=== PATIENT | female | born 1960 | race Caucasian/White ===

== ENCOUNTER → 2021-03-07 15:28 | Outpatient (CLI) | payer OTHER, SELFPAY ==
[2021-03-07 17:55] LABS: Absolute Lymphocyte Count 1.61 X10^3/uL (0.83-4.51); Absolute Neutrophil Count 3.8 X10^3/uL (2.0-7.7); Basophil# 0.04 X10^3/uL; Basophil% 0.7 % (0-1); Eosinophil# 0.09 X10^3/uL; Eosinophils% 1.5 % (0-5); Hematocrit 41.8 % (37-47); Hemoglobin 13.4 g/dL (12.0-15.0); Lymphocyte # 1.61 X10^3/ul (0.83-4.51); Lymphocyte % 26.7 % (19-41); Mean Corp Hgb Conc 32.1 g/dL (32-36); Mean Corpuscular Hgb 28.8 pg (27.0-32.0); Mean Corpuscular Volume 89.7 fL (81-99); Mean Platelet Vol. 10.7 fl (6.2-12.0); Monocyte# 0.46 X10^3/uL; Monocyte% 7.6 % (0-10); NRBC Flagged by Analyzer 0 % (0-5); Neutrophil # 3.81 X10^3/uL (2.7-7.7); Neutrophil % 63.2 % (47-70); Platelet Count 314 K/mm3 (150-450); RBC Distribution Width CV 12.2 % (11.6-14.6); RBC Distribution Width SD 39.7 fl (35.1-43.9); Red Blood Count 4.66 M/mm3 (4.2-5.4)
[2021-03-07 18:32] LABS: ALB/GLOB Ratio 1.1 RATIO (0.9-2.4); AST(SGOT) 13 U/L (15-37); Alanine Aminotransfer ALT/SGPT 17 U/L (13-56); Alkaline Phosphatase 52 U/L (45-117); Anion Gap 5 (5-15); BUN 18 mg/dL (7-18); BUN/Creat Ratio 20.7 RATIO (10-20); Calcium,Total 9.1 mg/dL (8.5-10.1); Chloride 108 mmol/L (98-107); Cholesterol 225 mg/dL (200); Creatinine, Serum 0.87 mg/dL (0.55-1.02); EST Glomerular Filtration Rate 70 mL/min (>60); Est Glom Filt Rate - Afr Amer 85 mL/min (>60); Globulin 3.6 g/dL (2.2-4.2); Glucose 97 mg/dL (74-106); High Density Lipoprotein 74 mg/dL; Potassium 3.6 mmol/L (3.5-5.1); Protein, Total 7.6 g/dL (6.4-8.2); Sodium Level 141 mmol/L (136-145); Thyroid Stim Hormone (TSH) 0.59 uIU/mL (0.358-3.74); Triglycerides 114 mg/dL; Very Low Density Lipoprotein 23 mg/dL (5-40)
[2021-03-10 14:08] LABS: Thyroid Stim Immunoglob <0.10 IU/L (0.00-0.55)
[2021-03-11 10:03] LABS: Anti-Thyroglobulin AB < 1.0 IU/mL (0.0-0.9); Thyroglobulin, Serum Qt. 43.4 ng/mL (1.5-38.5); Thyroid Peroxidase AB < 9 IU/mL (0-34)
== END ==
PROVIDERS: Family Medicine; PCP Family Medicine; Referring Provider Family Medicine; Visit Provider Family Medicine
DX: R79.89 Other specified abnormal findings of blood chemistry (principal)
CPT/HCPCS: 36415; 80053; 80061; 84432; 84443; 84445; 85025; 86376; 86800

== ENCOUNTER 2021-04-30 07:28 | Day surgery (SDC) | payer OTHER, SELFPAY ==
[2021-04-30 07:57] VITALS: BP 132/78; PULSE 74; RESP 16; TEMP 36.2; O2SAT 96; BMI 28.4
--- NOTE | 2021-04-30 07:59 | H&P.OPEN ---
HPI - General HPI Narrative JAMIE STOREY, is a 60 F who presents for surveillance colonoscopy. The patient reports her last colonoscopy was 8 years ago and she was recommended to repeat in 5 due to polyps. Patient is not having any abdominal pain or blood in the stool and denies any family history of colon cancer. [facility] Medical History (Updated 04/30/21 @ 08:[address] Neftali Aguirre MD) Non-smoker Post-menopausal Home Medications loratadine-pseudoephedrine [Claritin-D 24 Hour] 1 tab PO DAILY 04/26/21 [History Last Taken Unknown] Allergy/AdvReac Type Severity Reaction Status Date / Time Sulfa (Sulfonamide Allergy Rash Verified 04/26/21 16:35 Antibiotics) Surgical History (Updated 04/26/21 @ 16:36 by Jael Nuñez) History of hysterectomy History of tonsillectomy Social History Smoking Status: Never smoker Past Medical/Surgical History Planned Operation Planned Operative Procedure/s: colonoscopy Previous Hospitalizations/Surgeries HX Hospitalizations: No Any Problems With Anesthesia: No You/Your Family Experience Fever (Hyperthermia) With Anes: No Cholinesterase deficiency: No Cardiovascular Hx Hypertension: No Respiratory Hx Sleep Apnea: No Hx Respiratory Tract Infection/Cold (presently): No Do You Snore Loudly (louder than talking or can be heard): No Do You Often Feel Tired/ Fatigued/ Sleepy Dring Daytime?: No Has Anyone Observed You Stop Breathing During Sleep?: No Result (for STOP score): Negative Smoking Status: Never smoker Gastrointestinal Special diet followed at home: No Neurological Does patient have nerve stimulator: No Reproduction : No Allergies Sulfa (Sulfonamide Antibiotics) Allergy (Verified 04/26/21 16:35) Rash Discharge Is Pt Admitted From a Assisted, or a Long Term: No After D/C, Where Do you Plan to Go: Return Home Physical Exam Const alert and oriented x3 Resp normal respiratory effort and normal air movement Cardio regular rate and regular rhythm GI soft to palpation, non-tender and non-distended Assessment & Plan Assessment/Plan (1) History of colon polyps: PLAN: Patient has a history of polyps and is 3 years overdue for surveillance colonoscopy. I explained endoscopy in detail to the patient. I explained the risks including but not limited to stroke or heart attack with anesthesia, perforation of the GI tract, bleeding, infection. I explained that any of these could necessitate further emergency surgery. The patient understands and all questions were answered sufficiently. The patient wishes to proceed with procedure. Neftali Aguirre MD Pager: [facility] [address] [place] [address] [address] [place] [address] Office: Surgery Risks - Colonoscopy Risks Include but are not Limited To: Risks include but are not limited to: Bleeding, perforation requiring further surgery, inability to complete colonoscopy requiring barium enema.
[2021-04-30] MEDS: Lactated Ringers 1,000 ML 100 ML IV (08:02)
[2021-04-30 08:45] VITALS: BP 108/79; BP 132/78; PULSE 60; RESP 14; TEMP 36.5; O2SAT 98
[2021-04-30 08:50] VITALS: BP 114/95; BP 132/78; PULSE 61; RESP 16; O2SAT 98
[2021-04-30 08:55] VITALS: BP 126/76; BP 132/78; PULSE 61; RESP 16; O2SAT 98
[2021-04-30 09:00] VITALS: BP 113/72; BP 132/78; PULSE 56; RESP 16; TEMP 36.3; O2SAT 100
[2021-04-30 09:37] VITALS: BP 132/78
--- NOTE | 2021-04-30 09:55 | OP.CCLET_ITS ---
04/30/2021 Marcio Nicholson Md Re : Colonoscopy procedure for Saumya Sin Dear Bharat This procedure was performed on Friday, April 30, 2021. My impressions and recommendations are as follows: Impressions : - The entire examined colon is normal on direct and retroflexion views. - No specimens collected. Recommendations : - Discharge patient to home. - Resume previous diet. - Continue present medications. - Repeat colonoscopy in 10 years for screening purposes. My findings are described in the full procedure note, which is enclosed. If I can be of further assistance, please feel free to contact me at Doctor phone number(s): , Work: . Sincerely, Neftali Aguirre MD 04/30/2021 8:43:08 AM This report has been signed electronically.
--- NOTE | 2021-04-30 09:56 | OP.COLON_ITS ---
Patient Name: Suamya Sin Procedure Date: 04/30/2021 8:18 AM Date of : 1960 Age: 60 Procedure: Colonoscopy Indications: Surveillance: Personal history of adenomatous polyps on last colonoscopy > 5 years ago Providers: Neftali Aguirre MD Medicines: Monitored Anesthesia Care Patient Profile: This is a 60 year old female. Refer to note in patient chart for documentation of history and physical. Last Colonoscopy: several years ago. Complications: No immediate complications. Procedure: Pre-Anesthesia Assessment: - Prior to the procedure, a History and Physical was performed, and patient medications and allergies were reviewed. The patient's tolerance of previous anesthesia was also reviewed. The risks and benefits of the procedure and the sedation options and risks were discussed with the patient. All questions were answered, and informed consent was obtained. Prior Anticoagulants: The patient has taken no previous anticoagulant or antiplatelet agents. After reviewing the risks and benefits, the patient was deemed in satisfactory condition to undergo the procedure. After I obtained informed consent, the scope was passed under direct vision. Throughout the procedure, the patient's blood pressure, pulse, and oxygen saturations were monitored continuously. The Colonoscope was introduced through the anus and advanced to the cecum, identified by appendiceal orifice and ileocecal valve. The colonoscopy was performed without difficulty. The patient tolerated the procedure well. The quality of the bowel preparation was good. Scope In: 8:25:26 AM Scope Withdrawal Time 0 hours 6 minutes 4 seconds Scope Out: 8:40:27 AM Total Procedure Duration Time 0 hours 15 minutes 1 second Findings: The entire examined colon appeared normal on direct and retroflexion views. Impression: - The entire examined colon is normal on direct and retroflexion views. - No specimens collected. Recommendation: - Discharge patient to home. - Resume previous diet. - Continue present medications. - Repeat colonoscopy in 10 years for screening purposes. Procedure Code(s): --- Professional --- 37617, Colonoscopy, flexible; diagnostic, including collection of specimen(s) by brushing or washing, when performed (separate procedure) Diagnosis Code(s): --- Professional --- Z86.010, Personal history of colonic polyps CPT copyright 2017 [employer]. All rights reserved. The codes documented in this report are preliminary and upon flight manager review may be revised to meet current compliance requirements. Neftali Aguirre MD 04/30/2021 8:43:08 AM This report has been signed electronically. Number of Addenda: 0 Note Initiated On: 04/30/2021 8:18 AM
== END 2021-04-30 09:39 | disposition home or self-care (01) ==
LOC: EN 07:31 → AC 07:32
PROVIDERS: PCP Family Medicine; Referring Provider Family Medicine; Visit Provider Surgery
PROC: 0DJD8ZZ Inspection of Lower Intestinal Tract, Via Natural or Artificial Opening Endoscopic (ICD-10-PCS; CPT 45378; principal; 2021-04-30 08:25)
DX: Z12.11 Encounter for screening for malignant neoplasm of colon (principal); Z86.010 Personal history of colon polyps
CPT/HCPCS: 45378; J7120; J2405

== ENCOUNTER → 2021-08-08 | Outpatient (CLI) | payer OTHER, SELFPAY | END | disposition home or self-care (01) | LOC: LABSPEC 08-10 07:43 | PROVIDERS: PCP Family Medicine; Visit Provider Family Medicine | DX: U07.1 COVID-19 (principal) | CPT/HCPCS: 87635; U0005; U0003 ==

== ENCOUNTER 2021-08-13 13:47 | Outpatient (CLI) | payer OTHER, SELFPAY ==
[2021-08-13 13:59] VITALS: BP 115/94; PULSE 68; RESP 16; TEMP 36.5; O2SAT 99; BMI 27.4
[2021-08-13] MEDS: 0.9% Saline Lock 10 ML Syringe IV (14:03)
[2021-08-13 14:36] VITALS: BP 137/58; PULSE 56; RESP 16; TEMP 36.6; O2SAT 98
[2021-08-13 15:35] VITALS: BP 129/70; PULSE 53; RESP 16; TEMP 36.6; O2SAT 99
== END 2021-08-13 15:35 | disposition home or self-care (01) ==
LOC: MS3OUT 13:47 → MS3 13:48
PROVIDERS: PCP Family Medicine; Referring Provider Nurse Practitioner Adult Health; Visit Provider Nurse Practitioner Adult Health
DX: U07.1 COVID-19 (principal)
CPT/HCPCS: J7050; M0245; Q0245; A4216

== ENCOUNTER → 2021-09-06 11:57 | Outpatient (CLI) | payer OTHER, SELFPAY | PROVIDERS: PCP Family Medicine; Referring Provider Family Medicine; Visit Provider Family Medicine | DX: R69 Illness, unspecified (principal) ==

== ENCOUNTER → 2022-10-18 | Outpatient (CLI) | payer OTHER, SELFPAY ==
--- NOTE | 2022-10-18 12:40 | US_ITS ---
EXAM: US RIGHT LOWER EXTREMITY NON-VASCULAR, COMPLETE CLINICAL INDICATION: R knee pain. posterior and anterior. 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 This report was created using Denator report Waggl technology. COMPARISON: None. FINDINGS: The areas of the proximal right popliteal fossae and right right anterior knee were imaged. Normal soft tissues are demonstrated. No masses or fluid collections. US/Ext Non Vasc Limited/Soft Tiss IMPRESSION: 1. Normal soft tissues are demonstrated. 2. No masses or fluid collections Electronically Signed: Ryland Mckeon MD at 22:17 EST ,
== END | disposition home or self-care (01) ==
PROVIDERS: PCP Family Medicine; Referring Provider Family Medicine; Visit Provider Family Medicine
DX: M71.21 Synovial cyst of popliteal space [Baker], right knee (principal)
CPT/HCPCS: 76882

== ENCOUNTER 2022-11-22 14:30 | Outpatient (RCR) | payer OTHER, SELFPAY ==
--- NOTE | 2022-11-01 16:00 | HP.PTEVAL_ITS ---
Patient's Visit Information JAMIE STOREY is a 62 year old F referred to Physical Therapy by Dr. Oumar Hook MD with a diagnosis of RIGHT KNEE PAIN. Date of Evaluation: 11/01/22 Physical Therapist: Adama Garcia, PT, Cert MDT, OCS - Visit Plan Frequency: 1x/Week Duration: 1 Week Plan: PT INTERVETIONS ROM ,STRENGTHENING QUADS/HAMS/HIP ,FLEXABLITY AND FUNCTIONAL STRENGTHENING - Subjective This 62 y/o female presents to physical therapy with right knee pain .Patient has had right knee pain for ~ [address] did US . Recommended PT . Patient pain located medial/lateral knee. Patient aggravating factors medial/lateral ,squatting ,kneeling and difficulty with stairs. Alleviating factors rest ,heat. Patient DR recommended brace. MEDS : meloxicam. Patient has difficulty with sleeping .Patient seems to getting better. Patient affects QOL and function . VOCATION: Preschool. SOCAIL: - Pain Right Knee Pain Intensity (Out of 10): 9 Pain Intensity Range: 10 - Objective POSTURE: mild knee flexed right. GAIT: ambulates with slight knee flexed with mild decrease stance time. PALPATION: unremarkable. NEURO: intact. MMT:( peak force) -quads 16.2,hamstrings 17.7 ,hip flexion 23 .hip abd 17.2. AROM: Supine knee flexion 0-120 degrees pain with OP with flexion/extension - Special Tests R Knee Rossi - Meniscus: Negative R Knee Rivas - ACL: Negative R Knee Anterior Drawer - ACL: Negative R Knee Valgus - MCL: Negative R Knee Varus - LCL: Positive R Knee Patellar Apprehension - PFS: Negative R Knee Patellar Grind - PFS: Negative - Balance/Special Test Scores Lower Extremity Functional Score: 31 - Goals Goal 1:: Patient to be I with HEP Goal Time Frame: 4-6 Weeks Goal 2:: Patient to demonstrate 50% improvement with increase ROM and function with less pain Goal Time Frame: 4-6 Weeks Goal 3:: Patient to improve strength peak force by 5 points to improve function and gait Goal Time Frame: 4-6 Weeks Goal 4:: Patient to improve AROM supine knee flexion by 5 degrees to improve stairs Goal Time Frame: 4-6 Weeks Goal 5:: Patient to improve LFES score by 5 points or > to improve QOL and function Goal Time Frame: 4-6 Weeks - Rehabilitation Potential Physical Therapy Diagnosis: Patient has right knee pain with decrease ROM and strength and worse with activity medial/lateral movement but may have some minor meniscus dysfunction thus benefit from skilled PT Rehabilitation Potential: Good - Anticipated Interventions Patient/Client Instruction: Educate patient on: Condition, Plan of Care For the Purpose of:: To decrease pain, To increase ROM, To improve muscle performance and motor function, To improve ability to perform ADL's, To increase tolerance to activity/condition/position, To improve ability of physical actions for home/community/work/leisure, To improve health of tissue, To decrease soft tissue restriction, To increase flexibility/ROM, To reduce risk of recurrence Therapeutic Exercise to Include: Strength training, Flexibilty training, Active ROM Comment: QUADS/HAMS/HIP For the Purpose of:: To decrease pain, To increase ROM, To improve muscle performance and motor function, To increase tolerance to activity/condition/position, To improve ability of physical actions for home/community/work/leisure, To improve health of tissue, To decrease soft tissue restriction, To increase flexibility/ROM, To prevent re-injury Thank you for the opportunity to evaluate your patient. For Medicare and Medicare HMO plans, please review the plan of care and approve it. It will need to be FAXED BACK to us at [phone] for Medicare purposes. For Medicare only, by signing this I certify the plan of care. Please let me know if there are questions or concerns regarding this plan of care. Physician Signature: Date:___
--- NOTE | 2022-11-22 14:57 | HP.PTDCSUM ---
It has been my pleasure to treat JAMIE STOREY referred by Dr. Oumar Hook MD, with the diagnosis of RIGHT KNEE PAIN for a total of 4 visit(s). Discharge Date: 11/22/22 Please see the following information for a summary of their discharge status. Subjective: Doing good ready for d/c Right Knee Pain Intensity (Out of 10): 0 % Improvement: 90 Objective/Function: GAIT: reciprocal pattern. MMT: quads/hams 4/5 ,hip flexion 4/5 ,ankle 5/5. AROM : 0-135 degrees. STAIRS: alternating with rails Goal 1:: Patient to be I with HEP Goal Progress: Goal Met Goal 2:: Patient to demonstrate 50% improvement with increase ROM and function with less pain Goal Progress: Goal Met Goal 3:: Patient to improve strength peak force by 5 points to improve function and gait Goal Progress: Goal Met Goal 4:: Patient to improve AROM supine knee flexion by 5 degrees to improve stairs Goal 5:: Patient to improve LFES score by 5 points or > to improve QOL and function Goal Progress: Goal Met Plan: D/C Discharge Comments: HEP If there are questions or concerns regarding this patient's physical therapy, please feel free to call me at [phone]. Thank you for the referral of this patient. Sincerely, Adama Garcia, PT, Cert MDT, OCS Balance/Gait/Functional tests - Balance/Special Test Scores Lower Extremity Functional Score: 31
== END 2022-11-22 19:00 | disposition home or self-care (01) ==
LOC: PT 14:30
PROVIDERS: PCP Family Medicine; Referring Provider Family Medicine; Visit Provider Family Medicine
DX: M25.561 Pain in right knee (principal)
CPT/HCPCS: 97110; 97162

== ENCOUNTER → 2023-01-21 | Outpatient (CLI) | payer OTHER, SELFPAY ==
[2023-01-21 16:15] LABS: Bacteria 0 SEEN /hpf (None Seen); Mucous, Urine 0 SEEN /hpf (<or=2+); Squamous Epithelial Cells - UA 0 SEEN /hpf (5-10)
[2023-01-21 16:52] LABS: Color, Urine Yellow (Yellow); Glucose, Dipstick Normal (Normal); Ketone-Dipstick 5 mg/dl (Negative); Leukocyte Esterase-Dipstick 500 /ul (Negative); Nitrite-Dipstick Positive (Negative); Occult Blood-Urine 250 /ul (Negative); Protein-Dipstick 100 mg/dl (Negative); Specific Gravity, Urine 1.015 (1.002-1.030); Urine Bilirubin Dipstick Negative (Negative); Urine Clarity Cloudy (Clear); Urine Urobilinogen 1 mg/dl (Normal); Urine pH 6.5 (5.0 - 8.0)
[2023-01-21 17:03] LABS: Red Blood Cells-Urine > 100 SEEN /hpf (0-5); White Blood Cells >100 SEEN /hpf (0-5)
== END | disposition home or self-care (01) ==
LOC: LABSPEC 15:57
PROVIDERS: PCP Family Medicine; Referring Provider Physician Assistant Surgical; Visit Provider Physician Assistant Surgical
DX: N39.0 Urinary tract infection, site not specified (principal)
CPT/HCPCS: 81001; 87077; 87086; 87088; 87186

== ENCOUNTER → 2025-02-14 | Outpatient (CLI) | payer MEDICARE, BC, SELFPAY ==
[2025-02-14 15:34] LABS: AST(SGOT) 22 U/L (<=31); Alanine Aminotransfer ALT/SGPT 15 U/L (<=34)
== END | disposition home or self-care (01) ==
LOC: MTLAB 13:06
PROVIDERS: PCP Family Medicine; Referring Provider Podiatrist; Visit Provider Podiatrist
DX: B35.1 Tinea unguium (principal)
CPT/HCPCS: 36415; 84450; 84460

== ENCOUNTER → 2025-03-23 | Outpatient (CLI) | payer MEDICARE, BC, SELFPAY ==
[2025-03-23 11:36] LABS: AST(SGOT) 20 U/L (<=31); Alanine Aminotransfer ALT/SGPT 17 U/L (<=34)
== END | disposition home or self-care (01) ==
LOC: MTLAB 08:48
PROVIDERS: PCP Family Medicine; Referring Provider Podiatrist; Visit Provider Podiatrist
DX: B35.1 Tinea unguium (principal)
CPT/HCPCS: 36415; 84450; 84460

== ENCOUNTER → 2025-07-13 | Outpatient (CLI) | payer MEDICARE, BC, SELFPAY ==
--- NOTE | 2025-07-13 16:23 | BD_ITS ---
PROCEDURE: DEXA BONE DENSITY STUDY 07/13/2025 REASON FOR EXAM: F, age 64 y/o . Postmenopausal. TECHNIQUE: Procedure Code: BDDBD Modality: DX Procedure: DEXA BONE DENSITY STUDY COMPARISON: None FINDINGS: BMD and T-SCORES Lumbar spine: 0.897 g/cm2, T-score -1.1 Levels: L1 through L4 Left femoral neck: 0.705 g/cm2, T-score -1.3 Femoral neck comparison data not recommended for monitoring change. Left total hip: 0.869 g/cm2, T-score -0.6 Right femoral neck: 0.693 g/cm2, T-score -1.4 Femoral neck comparison data not recommended for monitoring change. Right total hip: 0.804 g/cm2, T-score -1 point The World Health Organization has defined the following categories based on bone density: Normal bone density: T-score equal to or greater than -1.0 Osteopenia: T-score between -1.0 and -2.5 Osteoporosis: T-score equal to or less than -2.5 FRAX (or Comparable) Fracture Risk Assessment: 10 Year Probability of Fracture: Major Osteoporotic Fracture: 8.5% Hip Fracture: 0.9% (Note: FRAX is not to be reported in setting of normal range bone density, osteoporosis on DEXA, known history of osteoporosis, prior osteoporotic hip or vertebral fracture, or for any patient undergoing pharmacological treatment for bone loss.) The National Osteoporosis Foundation (NOF) recommends pharmacological treatment for patients with a FRAX 10-year risk of 3% or higher for a hip fracture, or 20% or higher for a major osteoporotic fracture, to prevent osteoporosis and reduce fracture risk. The patient does meet the pharmacological treatment recommendations for prevention of osteoporosis. BD/Dexa Bone Density Study IMPRESSION: OSTEOPENIA. Recommend follow-up as clinically warranted. Reading Location: [facility]
--- OUTSIDE RECORDS SUMMARY | 2025-07-13 18:19 | XMS RPT_ITS | CCD ---
Author Organization [facility] CliniSynj Care Team Providers Care Turnstile Collector Name Role Phone Tizzano, Neftali P Unavailable Unavailable No Doctor Assigned, Nodr Unavailable Unavail able Tizzano, Neftali P Unavailable Unavailable Tizzano, Neftali P Unavailable Unavailable No Doctor Assigned, Nodr Unavailable Unavail able Tizzano, Neftali P Unavailable Unavailable Tizzano, Neftali P Unavailable Unavailable No Doctor Assigned, Nodr Unavailable Unavail able Tizzano, Neftali P Unavailable Unavailable Tizzano, Neftali P Unavailable Unavailable No Doctor Assigned, Nodr Unavailable Unavail able Tizzano, Neftali P Unavailable Unavailable No Doctor Assigned, Nodr Unavailable Unavail able Tizzano, Neftali P Unavailable Unavailable Tizzano, Neftali P Unavailable Unavailable No Doctor Assigned, Nodr Unavailable Unavail able Tizzano, Neftali P Unavailable Unavailable No Doctor Assigned, Nodr Unavailable Unavail able Tonya Slater Unavailable Unavailable Unknown, Referring Provider Unavailable Unav ailable Unknown, Referring Provider Unavailable Unav ailable Unavailable Unavailable TONYA SLATER Referring Unavailable TONYA SLATER Attending Unavailable TONYA SLATER Attending Unavailable Dr. Kandy Pool Primary Care Provider Dr. Kandy Pool Referring Provider MIGUEL Hall Attending Provider Kandy Pool Unavailable Tonya Slater Attending Unavailable Tonya Slater Referring Unavailable Dr. Kandy Pool Primary Care Unavai Dr. Kandy Oropeza Primary Care Provider Dr. Kandy Pool Referring Provider Roof CONTENT WRITER, CONTENT WRITEREleC Kandy Cueva Attending Provider Cisco CELESTE, BOOKER James Attending Provider Kandy Pool MD Primary Care Provider Krysta HERRON, Kandy Silva Primary Care Provider TONYA SLATER Attending Unavailable KANDY POOL Primary Care UnavailTONYA Pretty Referring Unavailable KANDY POOL Primary Care Unavailvania Pool MD, Dr. Kandy Costa Primary Care Provider [phone] Misty DPM, Dr. Nickerson Attending Provider Misty DPM, Dr. Nickerson Referring Provider Krishan Jay Attending Unavailable Krishan Jay Referring Unavailable Kandy Pool Primary Care Unavailable Krishan Jay Referring Unavailable Kandy Pool Primary Care Unavailable Krishan Jay Attending Unavailable [facility]andy Pool [facility] CONTENT WRITER, Joshua Attending Unavailable McMorrow CONTENT WRITER, Joshua Referring Unavailable Allergies Allergy Classification Reported Allergen(s) Allergy Type Date of Onset Reaction(s) Facility (1 source) sulfamethoxazole ; Translations: [sulfamethoxazol e] [facility] Sulfonamides (Antibiotic); Translations: [Sulfa Drugs] Allergy to drug (finding) [facility] [address] [employer] Work Phone: (7 sources) Sulfonamides (Antibiotic); Translations: [SULFA (SULFONAMIDE ANTIBIOTICS)] Allergy to substance 8 [facility] (4 sources) Sulfonamides (Antibiotic) Drug Intolerance 8 [facility] (1 source) Sulfonamides (Antibiotic) Drug allergy (disorder) 4 [facility] Repository Medications Current Medications Medication Drug Class(es) Dates Sig (Normalized) Sig (Original) 24 hr loratadine 10 mg / pseudoephedrine sulfate 240 mg extended release oral tablet (4 sources) alpha-Adrenergic Agonist Start: 12-16-2022 take 1 tablet by mouth every twenty-four hours Loratadine-Pseud oephedrine (Claritin-D 24 Hour) 10-240 mg tablet extended release 24 hr Active 1 {tbl} PO DAILY December 16, 2022 12:00am Start: 12-16-2022 take 1 tablet by cristine th once daily, then take 1 tablet by mouth every twenty-four hours Loratadine-Pseudoephedrine (Claritin-D 2 4 Hour) 10-240 mg tablet extended release 24 hr Active 1 TABLET PO DAILY December 16, 2022 12:00am predniSONE 10 mg oral tablet (2 sources) Start: 06-12-2024 Prednisone 10 mg tablet Active 10 mg PO .COMPLEX 30 0 June 12, 2024 12:00am Take 4 pills for 3 days, 3 pills for 3 days, 2 pills for 3 days, take 1 pill for 3 days sertraline 100 mg oral tablet (4 sources) Serotonin Reuptake Inhibitor Start: 07-21-2023 take 1 tablet by mouth once daily sertraline (Zoloft) 100 mg tablet Take 1 tablet (100 mg) by mouth once daily. 07/21/2023 Active Completed/Discontinued Medications Medication Drug Class(es) Dates Sig (Normalized) Sig (Original) benzonatate 200 mg oral capsule (5 sources) Non-narcotic Antitussive Start: 07-06-2022 End: 12-16-2022 Benzonatate 200 mg capsule Discontinued 200 mg PO 2 to 3 times per day as needed for cough 20 0 July 06, 2022 12:00am December 16, 2022 8:48am loratadine 10 mg oral capsule (6 sources) Claritin 10 MG O ral Capsule Quantity: 0 Refills: 0 Ordered: 03-Aug-2021 DO Active Claritin 10 MG O ral Capsule Refills: 0 Active nitrofurantoin, macrocrystals 25 mg / nitrofurantoin, monohydrate 75 mg oral capsule (3 sources) Nitrofuran Antibacterial Start: 01-21-2023 End: 01-28-2023 take 1 capsule by mouth every twelve hours at mealtime Nitrofurantoin Monohyd/M-Cryst 100 mg capsule Discontinued 1 NMA PO Q12H 14 7 0 January 21, 2023 12:00am January 27, 2023 12:00am January 28, 2023 12:04am administer with a meal/food; swallow whole; do not open, crush, dissolve , or chew Problems Active Problems Problem Classification Problem Date Documented Da te Episodic/Chronic Immunizations and screening for infectious disease (6 sources) Patient encounter status; Translations: [Encounter for screening for COVID-19] 07-06-2022 Episodic Other and unspecified benign neoplasm (5 sources) History of polyp of colon; Translations: [Personal history of colonic polyps] 04-30-2021 Episodic Other lower respiratory disease (4 sources) Cough; Translations: [Acute cough] 07-06-2022 Episodic Other lower respiratory disease (2 sources) Cough; Translations: [Acute cough] 07-06-2022 Episodic Other nutritional; endocrine; and metabolic disorders (5 sources) Overweight in adulthood with body mass index of 25 or more but less than 30; Translations: [Body mass index (BMI) 27.0-27.9, adult] 08-13-2021 Episodic Other and delivery including normal (6 sources) Delivery normal; Translations: [Normal delivery] Episodic Comment on above: 10/21/1983_40weeks_M ale_7# 9oz11/27/1989_weeks_Male_8# 13oz; Other screening for suspected conditions (not mental disorders or infectious disease) (20 sources) Cancer cervix - screening done; Translations: [Patient encounter status] Onset: 08-23-2022 Episodic Other upper respiratory disease (5 sources) Allergic disposition; Translations: [Allergic rhinitis due to other allergen] Chronic Other upper respiratory infections (17 sources) Viral pharyngitis; Translations: [Acute pharyngitis due to other specified organisms] 12-01-2021 Episodic Residual codes; unclassified (1 source) Asymptomatic menopausal state; Translations: [Asymptomatic menopausal state] Onset: 07-05-2025 Episodic Unclassified (4 sources) Patient encounter status; Translations: [Encounter for screening mammogram for breast cancer] 10-27-2024 Urinary tract infections (4 sources) Cystitis; Translations: [Cystitis, unspecified without hematuria] 01-21-2023 Episodic Viral infection (7 sources) Disease caused by 2019-nCoV; Translations: [COVID-19] 08-13-2021 Episodic Past or Other Problems Problem Classification Problem Date Documented Da te Episodic/Chronic Mycoses (1 source) Tinea unguium; Translations: [Tinea unguium] Onset: 03-29-2025 Episodic Unclassified (6 sources) Finding of menstrual bleeding; Translations: [Menstruation] Comment on above: Onset age 12 years; Unclassified (2 sources) Onset: 10-27-2024 10-27-2024 Results Test Name Value Interpretation Reference Range Facility AST(SGOT)on 03-23-2025 AST [Catalytic activity/Vol] 20 U/L Normal <=31 [facility] Comment on above: Performed By: #### L 501.4100, L501.4405 #### [facility] [address] [place], [place], [id number] Alanine Aminotransferas (SGP T)on 03-23-2025 ALT [Catalytic activity/Vol] 17 U/L Normal <=34 [facility] Comment on above: Performed By: #### L 501.4100, L501.4405 #### [facility] [address] [place], [place], [id number] Laboratory - Chemistry and C hemistry - challengeOrdered By: Krishan Jay on 03-23-2025 AST [Catalytic activity/Vol] 20 U/L <32 [facility] Serum or plasma alanine flores otransferase (ALT) measurementOrdered By: Krishan Jay on 03-23-2025 ALT [Catalytic activity/Vol] 17 U/L <35 [facility] AST(SGOT)on 02-14-2025 AST [Catalytic activity/Vol] 22 U/L Normal <=31 [facility] Comment on above: Performed By: #### L 501.4100, L501.4405 #### [facility] [address] [place], [place], [id number] Alanine Aminotransferas (SGP T)on 02-14-2025 ALT [Catalytic activity/Vol] 15 U/L Normal <=34 [facility] Comment on above: Performed By: #### L 501.4100, L501.4405 #### [facility] [address] [place], [place], [id number] Laboratory - Chemistry and C hemistry - challengeOrdered By: Krishan Jay on 02-14-2025 AST [Catalytic activity/Vol] 22 U/L <32 [facility] Serum or plasma alanine flores otransferase (ALT) measurementOrdered By: Krishan Jay on 02-14-2025 ALT [Catalytic activity/Vol] 15 U/L <35 [facility] BI MAMMO BILATERAL SCREENING TOMOSYNTHESISon 11-10-2024 BI MAMMO BILATERAL SCREENING TOMOSYNTHESIS Interpreted By: Zi Cartagena, STUDY: BI MAMMO BILATERAL SCREENING TOMOSYNTHESIS; 11/10/2024 1:45 pm ACCESSION NUMBER(S): [id number] ORDERING CLINICIAN: TONYA SLATER INDICATION: Screening. COMPARISON: Digital mammograms dated 11/08/2023 FINDINGS: CC and MLO 2D digital mammograms and digital breast tomosynthesis images were obtained of the bilateral breasts. 3-D volume images were reconstructed in 4 views at an independent workstation as 1 mm slices through the breasts in both the CC and MLO projections. Density: The breasts are heterogeneously dense, which may obscure small masses. No discrete mass or focal asymmetry is identified. No suspicious microcalcifications or foci of architectural distortion are seen. There has been no significant change. This study was interpreted with CAD. IMPRESSION: No mammographic evidence of malignancy. BI-RADS CATEGORY: BI-RADS Category: 1 Negative. Recommendation: Annual Screening. Recommended Date: 1 Year. Laterality: Bilateral. MACRO: None Signed by: Zi Cartagena 11/11/2024 9:16 AM Dictation workstation: [id number] [facility] Cervicalon 10-27-2024 Cytology Cervical or vaginal smear or scraping study Pathology report.total SEE COMMENT Gynecologic Cytology Case: [id number] Authorizing Provider: Tonya Slater MD Collected: 10/27/2024 1326 Ordering Location: [facility] Received: 10/27/2024 1326 Office Building First Screen: MELODY Angel Specimen: ThinPrep Liquid-Based Pap-Imaging System Screen, VAGINA, SCREENING Cytology study comment SEE COMMENT A. THINPREP PAP VAGINA, SCREENING - Specimen Adequacy Satisfactory for evaluation General Categorization Negative for intraepithelial lesion or malignancy. Descriptive Interpretation Negative for intraepithelial lesion or malignancy Cellular changes consistent with atrophy Specimen does not meet the requisition-stated criteria for HPV testing. See Pap test interpretation above. Laboratory comment SEE COMMENT Slide(s) initially screened by MELODY Angel at [facility] [id number] [facility] [id number] By the signature on this report, the individual or group listed as making the Final Interpretation/Diagnosis certifies that they have reviewed this case. This specimen has been analyzed by the [employer] Imaging System ([employer] an automated imaging and review system, which assists the laboratory in evaluating cells on ThinPrep Pap tests. Following automated imaging, selected aragon from every slide were reviewed by a supervisor insulation and/or pathologist. Cervical cytology is a screening procedure primarily for squamous cancers and precursors and has associated false-negative and false-positives results as evidenced by published data. Your patient's test should be interpreted in this context, together with the patient's history and clinical findings. Regular sampling and follow-up of unexplained clinical signs and symptoms are recommended to minimize false negative results. LAB AP HPV HR Reflex if ASCUS only LAB AP HPV GENOTYPE QUESTION Yes Menstrual History Hysterectomy Normal [facility] Ambulatory Culture, urineOrdered By: Wesley Peck on 01-23-2023 Bacteria identified Cx Nom (U) Escherichia coli [facility] Basophil percentageOrdered B y: Jacob Peck on 01-21-2023 Basophil percentage >100 SEEN /hpf 0-5 [facility] Bilirubin Test strip Ql (U)O rdered By: Jacob Peck on 01-21-2023 Bilirubin Ql (U) Negative Negative [facility] Ketones Test strip Ql (U)Ord ered By: Jcaob Peck on 01-21-2023 Ketones Ql (U) 5 mg/dl Negative [facility] Laboratory - Chemistry and C hemistry - challengeon 01-21-2023 Specific gravity (U) [Rel density] 1.010 [facility] Urobilinogen (U) [Mass/Vol] 0.2069440 mg/dL [facility] Laboratory - Hematology and Cell countson 01-21-2023 Hemoglobin Ql (U) Moderate [facility] Laboratory - Specimen inform ationon 01-21-2023 Clarity (U) Cloudy [facility] Color (U) HEDY [facility] Laboratory - Urinalysison Nitrite Ql (U) Negative [facility] Protein Ql (U) Trace [facility] Mucus LM Ql (Urine sed)Order ed By: Jacob Peck on 01-21-2023 Mucus Ql (Urine sed) 0 SEEN /hpf [facility] Nitrite Test strip Ql (U)Ord ered By: Jacob Peck on 01-21-2023 Nitrite Ql (U) Positive Negative [facility] No Panel Informationon 01-21 Urine Leukocytes Positive [facility] Protein Test strip Ql (U)Ord ered By: Jacob Peck on 01-21-2023 Protein Ql (U) 100 mg/dl Negative [facility] Squamous epithelial cells de tection in urine sediment by light microscopyOrdered By: Jcaob Peck on 01-21-2023 Epithelial cells.squamous LM Ql (Urine sed) 0 SEEN /hpf 5-10 [facility] Urine blood detectionOrdered By: Jacob Peck on 01-21-2023 RBC Ql (U) 250 /ul Negative [facility] RBC Ql (U) > 100 SEEN /hpf 0-5 [facility] Urine clarityOrdered By: Ernesto Peck on 01-21-2023 Clarity (U) Cloudy Clear [facility] Urine color determinationOrd ered By: Jacob Peck on 01-21-2023 Color (U) Yellow Yellow [facility] Urine glucose detectionOrder ed By: Jacob Peck on 01-21-2023 Glucose Ql (U) Normal mg/dl Normal [facility] Urine leukocyte esterase det ection by dipstickOrdered By: Jacob Peck on 01-21-2023 Leukocyte esterase Test strip Ql (U) 500 /ul Negative [facility] Urine pHOrdered By: Jacob almodovar on 01-21-2023 pH (U) 6.5 [pH] 5.0 - 8.0 [facility] Urine sediment bacteria coun t by microscopy (number/high power field)Ordered By: Jacob Peck on 01-21-2023 Bacteria LM.HPF (Urine sed) [#/Area] 0 /[HPF] None Seen [facility] Urine specific gravity measu rementOrdered By: Jacob Peck on 01-21-2023 Specific gravity (U) [Rel density] 1.015 1.002-1.030 [facility] Urobilinogen Auto test strip Ql (U)Ordered By: Jacob Peck on 01-21-2023 Urobilinogen Ql (U) 1 mg/dl Normal [facility] Laboratory - Microbiology an d Antimicrobial susceptibilityon 12-16-2022 SARS-CoV-2 (COVID-19) RNA DEL+probe Ql (Unsp spec) Detected [facility] No Panel Informationon 12-16 Influenza Types A,B Rapid (Clinic) Not detected [facility] Mamm - Screening Mammogram w / Tomosynthesison 11-02-2022 MG Breast Screening [facility] [address] [employer] Work Phone: [phone] LMPon 08-23-2022 Last menstrual period start date HYSTER [facility] [address] Work Phone: [phone] Laboratory - Cytologyon Cytology report Cyto stain.thin prep Doc (Cvx/Vag) [facility] [address] [employer] Work Phone: [phone] FILING OR REGISTRY CLERK - Office Visiton FILING OR REGISTRY CLERK - Office Visit Diagnoses/Problems Assessed Women's annual routine gynecological examination (V72.31) (Z01.419) Vaginal Papanicolaou smear (V76.47) (Z12.72) Orders PAP SAFETY PATROL OFFICER, Cytology; Status:In Progress - Specimen/Data Collected,Retrospective Authorization; Done: [id number] Last Menstrual Period (LMP): : HYSTER PAP - Site : VAGINAL Cytology Order : ThinPrep PAP, Screening, HPV CoTest - Include Genotyping Provider Impressions 1. Annual 2. Screening mammogram Patient is uncertain as to whether she wishes to have genetic testing due to her grandmother had ovarian cancer at age 80. Patient will call if she decides to have genetic testing performed. Follow-up in 1 year or as needed. Chief Complaint Patient is here for yearly exam. Patient does NOT DO self breast exams regularly. LMP HYSTER PT HAS NO CONCERNS. History of Present IllnessPresents for annual exam. She voices no complaints and is doing well. Denies any bowel or bladder problems. Denies any breast problems. She had previous hysterectomy. Review of Systems Review of Systems: Constitutional: No fever or chills Respiratory: No shortness of breath, or cough Cardiovascular: No chest pain or syncope Breasts: No breast pain, no masses, no nipple discharge Gastrointestinal: No nausea, vomiting, or diarrhea, no abdominal pain Genitourinary: No dysuria or frequency Gynecology: Negative except as noted in history of present illness All other: All other systems reviewed and negative for complaint Active Problems Problems Encounter for screening for cervical cancer (V76.2) (Z12.4) Encounter for screening mammogram for breast cancer (V76.12) (Z12.31) Environmental and seasonal allergies (477.8) (J30.89) Vaginal Papanicolaou smear (V76.47) (Z12.72) Women's annual routine gynecological examination (V72.31) (Z01.419) Past Medical History Problems History of Menstruation Onset age 12 years History of Normal vaginal delivery (650) (O80) 10/21/1983_40weeks_Male_7 # 9oz 11/27/1989_40weeks_Male_8 # 13oz History of Pap test, as part of routine gynecological examination (V76.2) (Z01.419) 08/03/2021: Negative 07/28/2020: Negative Surgical History Problems History of Partial hysterectomy History of Tonsillectomy Family History Mother Family history of hypertension (V17.49) (Z82.49) Family history of thyroid disease (V18.19) (Z83.49) Father Family history of glioblastoma (V16.8) (Z80.8) Social History Problems No alcohol use Non-smoker (V49.89) (Z78.9) Allergies Medication Sulfa Drugs Recorded By: Renetta Hook; 07/28/2020 2:01:02 PM Current Meds Medication NameInstruction Claritin 10 MG Oral Capsule Vitals Vital Signs Recorded: [id number] 10:37AM [id number] Tlwsheuyj97 Height5 ft 6 in Ezsktq89.4 kg BMI Wgfykurhzk13.32 kg/m2 BSA Calculated1.92 LMPHYSTER Physical Exam PHYSICAL EXAMINATION: Well-developed, well nourished, in no acute distress, alert and oriented x three, is pleasant and cooperative. HEENT: Clear. Pupils equal, round and reactive to light and accommodation. Extraocular muscles are intact. Oral mucosa pink without exudate. NECK: No lymphadenopathy, no thyromegaly. BREASTS: Symmetric, no palpable masses. No nipple discharge or retraction. LUNGS: Clear bilaterally. HEART: Regular rate and rhythm without murmurs. ABDOMEN: Normoactive bowel sounds, soft and nontender, no guarding or rebound tenderness, no CVA tenderness. EXTREMITIES: No clubbing, cyanosis or edema. NEUROLOGIC: Cranial nerves II-XII grossly intact. : Normal external female genitalia. Normal vulva and vagina. Normal urethral meatus, urethra and bladder. Noted surgical absence of the cervix and uterus. Well-healed vaginal cuff. Pap smear performed today. Signatures Electronically signed by : Tonya Slater MD; Aug 23 2022 11:08AM EST (Author) Normal [facility] - Microbiology an d Antimicrobial susceptibilityon 07-06-2022 SARS-CoV-2 (COVID-19) RNA DEL+probe Ql (Unsp spec) Not detected [facility] No Panel Informationon 07-06 Influenza Types A,B Rapid (Clinic) Not detected [facility] Mamm - Screening Mammogram w / Tomosynthesison 10-27-2021 MG Breast Screening Normal [facility] [address] [employer] Work Phone: [phone] LMPon 08-03-2021 Last menstrual period start date hysterectomy [facility] [address] Work Phone: [phone] Mamm - Screening Mammogram w / Tomosynthesison 08-19-2020 MG Breast screening Please click on the link to view the study images Normal [facility] [address] Work Phone: [phone] Imm/Pathon 07-28-2020 Cytology report Cyto stain.thin prep Doc (Cvx/Vag) Date of Procedure: 07/28/2020 Pathologist: [facility], CytologyDate Reported: 08/15/2020Date Received: 08/01/2020Submitting Physician: TONYA SLATER MD FINAL CYTOLOGICAL INTERPRETATIONA. THINPREP PAP VAGINAL: Specimen Adequacy: SATISFACTORY FOR EVALUATION. Quality Indicator: Paucity of cellularity. General Categorization: NEGATIVE FOR INTRAEPITHELIAL LESION OR MALIGNANCY. Descriptive Interpretation: CELLULAR CHANGES CONSISTENT WITH ATROPHY. Ancillary Testing: Specimen does not meet the requisition-stated criteria for HPV testing.See Pap test interpretation above. This specimen has been analyzed by the [employer] Imaging System ([employer]an automated imaging and review system, which assists the laboratory inevaluating cells on ThinPrep Pap tests. Following automated imaging, selectedfields from every slide were reviewed by a supervisor insulation and/or pathologist.Electronicall y Signed Out By [facility],Cytology//ELC/P WM By the signature on this report, the individual or group listed as making theFinal Interpretation/Diagnosis certifies that they have reviewed this case.Educational Note:Cervical cytology is a screening procedure primarily for squamous cancers andprecursors and has associated false-negative and false-positive results asevidenced by published data. Your patient's test should be interpreted in thiscontext, together with patient's history and clinical findings. Regularsampling and follow-up of unexplained clinical signs and symptoms arerecommended to minimize false negative results. Clinical HistoryDate of Last Menstrual Period: hysterectomyOther Clinical Conditions:HPV Reflex for ASC-US only - Include HPV Genotype AnnualClinical Diagnosis History: Encounter for screening for cervical cancer -(Z12.4) Source of SpecimenA: [facility]P [facility] [address] [place] [address] [facility] [address] Work Phone: Lab Miscellaneouson 04-23-20 17 Status See Ref Lab Report Normal [facility] Comment on above: Performed By: #### 1 [id number] ####VIRGIL [employer] [place] [id number] [place] Mamm Screen w/CAD if perf ormed bilaton 04-21-2017 MA Mamm Screen w/CAD if performed bilat Exam Date/Time:04/15/2017 14:58 EDTReason for Exam:SCREENING;ScreeningR eportBILATERAL DIGITAL SCREENING MAMMOGRAPHY WITH CAD:REASON FOR EXAM: Routine screening.TECHNIQUE: Craniocaudal and mediolateral oblique views of both breasts.COMPARISON EXAM: 03/01/2016 and 11/02/2014.BREAST COMPOSITION: Scattered glandular densities.FINDINGS: The breasts are similar in size. They show a minor amount ofsymmetrical glandular density. I do not see any evidence of mass, architecturaldistortion or malignant microcalcifications. The area marked by CAD is benigncomposite density. The axillary regions are satisfactory.IMPRESSION:S table mammographic appearance without interval change or sign of malignancy.BI-RADS 1 - Negative, no evidence of malignancy. Normal interval followup in 12months.OVERALL ASSESSMENT- NEGATIVEA letter of notification will be sent to the patient regarding the results.Assessment / Recommendation: 1-1 Normal interval follow-upBreast density: Scattered Fibroglandular DensityRecall interval: 012 months FINAL REPORT Dictated: 04/21/2017 12:35 pm Yue Collins DO RSigned (Electronic Signature): 04/21/2017 12:35 pmSigned by: Yue Collins DO Technologist: MGWAssessment: BI-RADS Category 1-NegativeRecommendation: Normal interval follow-up Normal [facility] Lab Miscellaneouson 04-15-20 Test Name pap with hpv Normal [facility] Comment on above: Performed By: #### 1 [id number] ####VIRGIL [employer] [address] [address] Vital Signs Date Time Vital Sign Value Performing Clinician Facility 10-27-2024 13:23-0500 Body height 167.6 cm Tonya Slater MD Work Phone: [facility] 10-27-2024 13:23-0500 Body mass index (BMI) [Ratio] 30.47 kg/m2 Tonya Slater MD Work Phone: [facility] 10-27-2024 13:23-0500 Body weight 85.64 kg Tonya Slater MD Work Phone: [facility] 10-27-2024 13:23-0500 Diastolic blood pressure 64 mm[Hg] Tonya Slater MD Work Phone: [facility] 10-27-2024 13:23-0500 Systolic blood pressure 112 mm[Hg] Tonya Slater MD Work Phone: [facility] 01-21-2023 12:51-0400 Body height 167.[address] Kandy Pool Work Phone: [facility] 01-21-2023 12:51-0400 Body temperature 98.4 [degF] Dr. Kandy Pool Work Phone: [facility] 01-21-2023 12:51-0400 Diastolic blood pressure 80 mm[Hg] Dr. Kandy Pool Work Phone: [facility] 01-21-2023 12:51-0400 Heart rate 83 /min Dr. Kandy Pool Work Phone: [facility] 01-21-2023 12:51-0400 Respiratory rate 16 /min Dr. Kandy Pool Work Phone: [facility] 01-21-2023 12:51-0400 SaO2% (BldA) [Mass fraction] 99 % Dr. Kandy Pool Work Phone: [facility] 01-21-2023 12:51-0400 Systolic blood pressure 128 mm[Hg] Dr. Kandy Pool Work Phone: [facility] 12-16-2022 08:49-0400 Body temperature 97.3 [degF] Dr. Kandy Pool Work Phone: [facility] 12-16-2022 08:49-0400 Diastolic blood pressure 64 mm[Hg] Dr. Kandy Pool Work Phone: [facility] 12-16-2022 08:49-0400 Heart rate 65 /min Dr. Kandy Pool Work Phone: [facility] 12-16-2022 08:49-0400 Respiratory rate 15 /min Dr. Kandy Pool Work Phone: [facility] 12-16-2022 08:49-0400 SaO2% (BldA) [Mass fraction] 96 % Dr. Kandy Pool Work Phone: [facility] 12-16-2022 08:49-0400 Systolic blood pressure 140 mm[Hg] Dr. Kandy Pool Work Phone: [facility] 08-23-2022 10:37-0500 Body height 167.64 cm Referring Provider [address] Work Phone: 08-23-2022 10:37-0500 Body mass index (BMI) [Ratio] 29.32 kg/m2 Referring Provider Unknown [place] [address] [employer] Work Phone: 08-23-2022 10:37-0500 Body surface area Derived from formula 1.92 m2 Referring Provider Unknown [facility] [employer] Work Phone: 08-23-2022 10:37-0500 Body weight 82.4 kg Referring Provider Unknown [place] [address] [employer] Work Phone: 08-23-2022 10:37-0500 Diastolic blood pressure 68 mm[Hg] Referring Provider Unknown [place] [address] [employer] Work Phone: 08-23-2022 10:37-0500 Systolic blood pressure 112 mm[Hg] Referring Provider Unknown [place] [address] [employer] Work Phone: 07-06-2022 13:56-0400 Body temperature 98.4 [degF] Dr. Kandy Pool Work Phone: [facility] 07-06-2022 13:56-0400 Diastolic blood pressure 80 mm[Hg] Dr. Kandy Pool Work Phone: [facility] 07-06-2022 13:56-0400 Heart rate 80 /min Dr. Kandy Pool Work Phone: [facility] 07-06-2022 13:56-0400 Respiratory rate 17 /min Dr. Kandy Pool Work Phone: [facility] 07-06-2022 13:56-0400 SaO2% (BldA) [Mass fraction] 97 % Dr. Kandy Pool Work Phone: [facility] 07-06-2022 13:56-0400 Systolic blood pressure 118 mm[Hg] Dr. Kandy Pool Work Phone: [facility] 08-03-2021 14:00-0500 Body height 167.64 cm Referring Provider Unknown [place] [address] [employer] Work Phone: 08-03-2021 14:00-0500 Body mass index (BMI) [Ratio] 28.15 kg/m2 Referring Provider Unknown eHidi L[facility] [place] Work Phone: 08-03-2021 14:00-0500 Body surface area Derived from formula 1.89 m2 Referring Provider Unknown Heidi Lyman [place] Work Phone: 08-03-2021 14:00-0500 Body temperature 97.8 [degF] Referring Provider Unknown Heidi Lyman [place] Work Phone: 08-03-2021 14:00-0500 Body weight 79.1 kg Referring Provider Unknown Heidi Lyman [place] Work Phone: 08-03-2021 14:00-0500 Diastolic blood pressure 72 mm[Hg] Referring Provider Unknown Heidi Lyman [place] Work Phone: 08-03-2021 14:00-0500 Systolic blood pressure 118 mm[Hg] Referring Provider Unknown Heidi Lyman [place] Work Phone: 07-28-2020 16:04-0500 BMI (Body Mass Index) 27.19 kg/m2 Tonya Lyman [place] Work Phone: 07-28-2020 16:04-0500 Body Temperature 98.4 [degF] Tonya Lyman [place] Work Phone: Comment on above: Method: Temporal 07-28-2020 16:04-0500 Body weight 76.4 kg Tonya landa [address] Work Phone: 07-28-2020 16:04-0500 BP Diastolic 70 mm[Hg] Tonya landa [address] Work Phone: Comment on above: Location: LUE; Position: Sitting 07-28-2020 16:04-0500 BP Systolic 120 mm[Hg] Tonya landa [address] Work Phone: Comment on above: Location: LUE; Position: Sitting 07-28-2020 16:04-0500 BSA (Body Surface Area) 1.86 m2 Tonya Slater [facility] [address] [employer] Work Phone: 07-28-2020 16:04-0500 Height 167.64 cm Tonya Slater [facility] [employer] Work Phone: Encounters Encounter Date Encounter Type Care Provider Facility Start: 07-13-2025 ambulatory Kandy Pool Facilit y:[facility] Start: 03-23-2025 End: 03-23-[address] Kandy Pool MD Work Phone: -[employer] Start: 03-23-2025 End: 03-23-[address] Krishan Jay [facility] Work Phone: Start: 03-23-2025 End: 03-23-2025 ambulatory Krishan Jay Facility:[facility] Start: 02-14-2025 End: 02-14-[address] Kandy Pool MD Work Phone: [facility] Work Phone: Start: 02-14-2025 End: 02-14-[address] Krishan Jay [facility] -Labor[facility] [place] Work Phone: Start: 02-14-2025 End: 02-14-2025 ambulatory Krishan Jay Facility:[facility] Start: 11-10-2024 End: 11-10-2024 Subsequent hospital visit by physician Danielito [facility] Comment on above: Encounter for screen ing mammogram for malignant neoplasm of breast Start: 11-10-2024 End: 11-10-2024 ambulatory TONYA SLATER [facility] Start: 10-27-2024 End: 10-27-2024 Patient encounter procedure Tonya Slater MD Work Phone: [facility] Comment on above: Encounter for annual routine gynecological examination; Encounter for screening mammogram for malignant neoplasm of breast; Vaginal Pap smear Start: 10-27-2024 End: 10-27-2024 ambulatory [facility] Start: 10-27-2024 End: 10-27-2024 Encounter for gynecological examination (general) (routine) without abnormal findings [facility] Start: 11-08-2023 End: 11-08-2023 Subsequent hospital visit by physician Danielito [facility] Comment on above: Encounter for screen ing mammogram for breast cancer Start: 01-21-2023 End: 01-21-[address] Kandy Pool Work Phone: [facility] Work Phone: Start: 01-21-2023 End: 01-21-[address] Kandy Pool Work Phone: [facility]-Laboratory, Specimen Start: 01-21-2023 End: 01-21-[address] Kandy Pool Work Phone: [facility] Start: 12-16-2022 End: 12-16-[address] Kandy Pool Work Phone: [facility] Start: 11-22-2022 End: 11-22-[address] Kandy Pool Work Phone: [facility] Work Phone: Start: 11-22-2022 End: 11-22-[address] Kandy Pool Work Phone: [facility] Therapy Start: 11-04-2022 Chart Update Kandy paniagua Work Phone: [address] Work Phone: Start: 11-02-2022 ambulatory [facility] Facility:[id number] Start: 10-18-2022 End: 10-18-[address] Kandy Pool Work Phone: [facility] Work Phone: Start: 10-18-2022 End: 10-18-[address] Kandy Pool Work Phone: [facility] Start: 09-02-2022 Chart Update Referring Prov ider Unknown [facility] [address] Work Phone: Start: 08-23-2022 Encounter for gynecological examination (general) (routine) without abnormal findings TONYA SLATER [facility] Start: 08-23-2022 Encounter for gynecological examination (general) (routine) without abnormal findings TONYA SLATER Facility:[facility] Start: 08-23-2022 Periodic preventive med est patient 40-64yrs Referring Provider Unknown [facility] [address] Work Phone: Start: 08-23-2022 [facility] Facility:[facility] Start: 07-06-2022 End: 07-06-[address] Kandy Pool Work Phone: [facility] Start: 10-29-2021 Chart Update Referring Prov ider Unknown [facility] [address] Work Phone: Start: 08-03-2021 Periodic preventive med est patient 40-64yrs Referring Provider Unknown [facility] [address] Work Phone: Start: 03-31-2018 Patient encounter Neftali Toro Facility:[facility] Start: 03-30-2018 Patient encounter Neftali Toro Facility:[facility] Start: 03-30-2018 Patient encounter Neftali Toro Facility:[facility] Start: 04-16-2017 End: 04-16-2017 Patient encounter Neftali Toro Facility:[facility] Start: 04-15-2017 End: 04-16-2017 Patient encounter Neftali Toro Facility:[facility] Start: 04-15-2017 End: 04-16-2017 Patient encounter Neftali Toro Facility:[facility] Start: 04-15-2017 End: 04-16-2017 Patient encounter Neftali Toro Facility:[facility] Encounter for gynecological examination (general) (routine) without abnormal findings Referring Provider Unknown [facility] [address] Work Phone: Comment on above: 07/28/2020: Negative ; 08/03/2021: Negative 07/28/2020: Negative; 08/23/2022: CoTest N [id number]/03/2021: Ufkilgrm17/13/2020: Negative; Patient encounter procedure Referring Provider Unknown [address] Work Phone: Procedures Date Procedure Procedure Detail Performing Clinician Start: 11-08-2023 Mammography Tonya maynard MD Work Phone: Start: 11-02-2022 Mammography Danielito Mammo Start: 10-18-[address] Kandy Pool Work Phone: Partial hysterectomy Tonya santillan Tonsillectomy Tonya Slater Urine culture Dr. Kandy lam Work Phone: Plan of Treatment Date Care Activity Detail Author Start: 2034 RSV High Risk: (Elde rly (60+) or Population) (1 - 1-dose 75+ series) RSV High Risk: (Elderly (60+) or Population) (1 - 1-dose 75+ series) [facility] Start: 06-03-2033 DTaP/Tdap/Td Vaccine s (3 - Td or Tdap) DTaP/Tdap/Td Vaccines (3 - Td or Tdap) [facility] Start: 11-02-2025 End: 11-02-2025 Patient encounter procedure 11/02/2025 1:00 PM EST Office Visit [facility] [address] [place] [id number] Tonya Slater MD [address] [facility] Medical Office, [facility] [address] [place] [address] [facility] Start: 11-08-2024 Screening for malign ant neoplasm of breast Mammogram [facility] Start: 10-27-2024 End: 10-27-2025 Cytology Cervical or vaginal smear or scraping study [facility] Service Area Work Phone: Comment on above: Expected: 10/27/2024 (Approximate), Expires: 10/27/2025 Start: 10-27-2024 End: 11-24-2025 DBT Breast - bilateral BI mammo bilateral screening tomosynthesis Imaging Routine Encounter for screening mammogram for malignant neoplasm of breast Expected: 10/27/2024, Expires: 11/24/2025 [facility] Work Phone: Comment on above: Expected: 10/27/2024 , Expires: 11/24/2025 Start: 09-03-2024 End: 09-03-2024 Patient encounter procedure 09/03/2024 10:30 AM EST Office Visit [facility] [address] [place] [address] Tonya Slater MD [address] [facility] Medical Office, [place] [id number] [facility] Start: 08-30-2024 Yearly Adult Physical Yearly Adult P hysical [facility] Start: 2024 Pneumococcal Vaccine : 65+ Years (1 - PCV) Pneumococcal Vaccine: 65+ Years (1 - PCV) [facility] Start: 05-16-2024 COVID-19 Vaccine ( season) COVID-19 Vaccine ( season) [facility] Start: 11-02-2023 Screening for malign ant neoplasm of breast Mammogram [facility] Start: 08-29-2023 Patient encounter procedure ANNUAL, Provider: Tonya Slater, Status: Pen, Time: 10:30 AM [employer] Work Phone: Start: 05-16-2023 COVID-19 Vaccine ( season) COVID-19 Vaccine ( season) [facility] Start: 08-23-2022 Patient encounter procedure ANNUAL, Provider: Tonya Slater, Status: Pen, Time: 10:30 AM [place] [address] [place] Work Phone: Start: 2009 Pneumococcal vaccination Pneumococcal Vaccine (1 of - PCV) [facility] Start: 1977 Diabetes mellitus screening Diabetes Screening [facility] Start: 1977 Hepatitis C screening Hepatitis C Sc reening [facility] Start: 1959 Annual wellness visit Welcome to Medicare Visit [facility] Start: 1959 HIV screening HIV Screening [facility] Start: 1959 Lipid panel Lipid Panel [facility] Start: 1959 Screening for malign ant neoplasm of colon [facility] Start: 1959 Screening for osteoporosis Bone Density Scan [facility] Start: 1960 Yearly Adult Physical Yearly Adult P hysical [facility] End: 11-08-2023 DBT Breast - bilateral [facility] Service Area Work Phone: Comment on above: Once for 1 Occurrenc es starting 11/08/2023 until 11/08/2023 End: 11-10-2024 DBT Breast - bilateral [facility] Service Area Work Phone: Comment on above: Once for 1 Occurrenc es starting 11/10/2024 until 11/10/2024 Payers Date Payer Category Payer Self-pay [id number] 2024 Blue Cross Blue Shie ld Managed Care [facility] [id number] 2024 Medicare MEDICARE PART A AND B [id number] 2024 Medicare [id number] 2024 Unknown [id number] 2022 Private Health Insurance [facility] [employer]WORK [id number] 2022-Present [phone] [address] [place] [address] [id number] 2021 Unknown [id number] 2017 Unknown 1959 Unknown [id number] 1959 Unknown [id number] 1959 Unknown [id number] 1959 Unknown [id number] 1959 Unknown [id number] Private Health Insurance [facility] [id number] Unknown [facility] [id number] Unknown [id number] Unknown [id number] Unknown [id number] Social History Date Type Detail Facility Assertion Tobacco smoking consumption unknown (finding) [facility] [address] Work Phone: Start: 11-08-2023 End: 10-27-2024 Non-smoker Non-smoker [facility] [address] Work Phone: Start: 07-06-2022 End: 01-21-2023 Tobacco smoking status NHIS Unknown if ever smoked [facility] Start: 1960 Sex Assigned At Female W [facility] Start: 01-21-2023 End: 08-29-2023 Tobacco smoking status NHIS Never smoked tobacco [facility] Work Phone: Start: 08-29-2023 Tobacco use and exposure Smokeless tobacco non-user [facility] Work Phone: Start: 11-08-2023 End: 11-10-2024 Alcohol intake Lifetime non-drinker (finding) [facility] Work Phone: Start: 11-08-2023 End: 10-27-2024 Tobacco use panel [facility] Work Phone: Start: 1960 [facility]: Start: 10-29-2023 End: 11-10-2024 Exposure to SARS-CoV-2 (event) Not sure [facility] Within the last year , have you been afraid of your partner or ex-partner? No [facility] Work Phone: How often to you hav e a drink containing alcohol? Never [facility] Work Phone: How many standard drinks containing alcohol do you have on a typical day? Patient does not drink [facility] Work Phone: (I/We) worried vanessa er (my/our) food would run out before (I/we) got money to buy more. Never true [facility] Work Phone: Functional Status Date Assessment Result Facility NEGATED: Highlighted row Functional performance Functional status health issues are not documented Disease [place] [address] [employer] Work Phone: Mental Status Date Assessment Result Facility NEGATED: Highlighted row Cognitive function [Interpretation] Cognitive status health issues are not documented Disease [place] [address] [employer] Work Phone: Clinical Notes 08-23-2022 to 10-27-2024 Tonya Slater MD - 10/27/2024 1:15 PM EST Note Date & Type Note Facility 10-27-2024 History of Present illness Narrative Jamie Sin is a 64 y.o. female who is here for a routine exam. PCP = Kandy Pool MD Chief Complaint Patient presents with Gynecologic Exam Patient is here for yearly exam and pap test. Patient does not do regular self breast exams and has no concerns at this time. LMP: Hysterectomy Presents for annual exam. She voices no complaints and is doing well. Denies any bowel or bladder problems. Denies any breast problems. She had a previous hysterectomy. OB History 2 Para 2 Term 2 0 AB 0 Living 2 SAB 0 IAB 0 Ectopic 0 Multiple 0 Live Births 2 Past Medical History: Diagnosis Date Encounter for full-term uncomplicated delivery Normal vaginal delivery Encounter for gynecological examination (general) (routine) without abnormal findings Pap test, as part of routine gynecological examination Other conditions influencing health status Menstruation Past Surgical History: Procedure Laterality Date OTHER SURGICAL HISTORY 07/28/2020 Partial hysterectomy OTHER SURGICAL HISTORY 07/28/2020 Tonsillectomy Past med hx and past surg hx reviewed and notable for: none Review of Systems: Constitutional: No fever or chills Respiratory: No shortness of breath, or cough Cardiovascular: No chest pain or syncope Breasts: No breast pain, no masses, no nipple discharge Gastrointestinal: No nausea, vomiting, or diarrhea, no abdominal pain Genitourinary: No dysuria or frequency Gynecology: Negative except as noted in history of present illness All other: All other systems reviewed and negative for complaint Objective BP 112/64 Ht 1.676 m (5' 6") Wt 85.6 kg (188 lb 12.8 oz) BMI 30.47 kg/m PHYSICAL EXAMINATION: [employer] present for exam: Lucia ChambersHOLLEY Well-developed, well nourished, in no acute distress, alert and oriented x three, is pleasant and cooperative. HEENT: Clear. Pupils equal, round and reactive to light and accommodation. Extraocular muscles are intact. Oral mucosa pink without exudate. NECK: No lymphadenopathy, no thyromegaly. BREASTS: Symmetric, no palpable masses. No nipple discharge or retraction. LUNGS: Clear bilaterally. HEART: Regular rate and rhythm without murmurs. ABDOMEN: Normoactive bowel sounds, soft and nontender, no guarding or rebound tenderness, no CVA tenderness. EXTREMITIES: No clubbing, cyanosis or edema. NEUROLOGIC: Cranial nerves II-XII grossly intact. : Normal external female genitalia. Normal vulva and vagina. Normal urethral meatus, urethra and bladder. Noted surgical absence of the cervix and uterus. Well-healed vaginal cuff. Pap smear performed today. Actions performed during this visit include: - Clinical breast exam - Clinical pelvic exam - Orders Placed This Encounter Procedures BI mammo bilateral screening tomosynthesis Standing Status: Future Standing Expiration Date: 11/24/2025 Order Specific Question: Reason for exam: Answer: Screening Order Specific Question: Radiologist to Determine Optimal Study Answer: Yes Order Specific Question: Release result to [employer] coral Answer: Immediate [1] Order Specific Question: Is this exam part of a Research Study? If Yes, link this order to the research study Answer: No Problem List Items Addressed This Visit None Visit Diagnoses Encounter for annual routine gynecological examination Relevant Orders THINPREP PAP TEST Encounter for screening mammogram for malignant neoplasm of breast Relevant Orders BI mammo bilateral screening tomosynthesis Vaginal Pap smear Relevant Orders THINPREP PAP TEST Provider Impression: 1. Annual 2. Screening mammogram Thank you for coming to your annual exam. Your findings during the exam were normal. Please return for your next visit in 1 year. documented in this encounter [facility] Work Phone: 11-22-2022 Discharge summary Note Date/Time November 22, 2022 2:57pm [facility] [address] [place] [address]. [address] [place] [address] / REHABILITATION SERVICES DISCHARGE SUMMARY MR#: [id number] Acct: [id number] Name: JAMIE SIN Rep #: [id number] : 1960 62 From: Cert. YOON [place], OCS Referring Dr.: Dr. Oumar Hook MD Status: REG RCR Insurance: [employer] [address] [employer] [id number] It has been my pleasure to treat JAMIE SIN referred by Dr. Oumar Hook MD, with the diagnosis of RIGHT KNEE PAIN for a total of 4 visit(s). Discharge Date: 11/22/22 Please see the following information for a summary of their discharge status. Subjective: Doing good ready for d/c Right Knee Pain Intensity (Out of 10): 0 % Improvement: 90 Objective/Function: GAIT: reciprocal pattern. MMT: quads/hams 4/5 ,hip flexion 4/5 ,ankle 5/5. AROM : 0-135 degrees. STAIRS: alternating with rails Goal 1:: Patient to be I with HEP Goal Progress: Goal Met Goal 2:: Patient to demonstrate 50% improvement with increase ROM and function with less pain Goal Progress: Goal Met Goal 3:: Patient to improve strength peak force by 5 points to improve function and gait Goal Progress: Goal Met Goal 4:: Patient to improve AROM supine knee flexion by 5 degrees to improve stairs Goal 5:: Patient to improve LFES score by 5 points or > to improve QOL and function Goal Progress: Goal Met Plan: D/C Discharge Comments: HEP If there are questions or concerns regarding this patient's physical therapy, please feel free to call me at [phone]. Thank you for the referral of thispatient. Sincerely, Tonya Garcia PT, Maury NETTLES, OCS Balance/Gait/Functional tests - Balance/Special Test Scores Lower Extremity Functional Score: 31 <Electronically signed by Cert. YOON Hickey PT, OCS> 01/16/23 1441 CC: Dr. Oumar Hook MD; Dr. Kandy Pool MD ~ [place] Signed [facility] Work Phone: 1(844) [id number] NoteAccession #: [id number] Date of Procedure: 08/23/2022 Pathologist: [facility], Cytology Date Reported: 09/02/2022 Date Received: 08/23/2022 Submitting Physician: TONYA SLATER MD FINAL CYTOLOGICAL INTERPRETATION A. THINPREP PAP VAGINAL: Specimen Adequacy: SATISFACTORY FOR EVALUATION. General Categorization: NEGATIVE FOR INTRAEPITHELIAL LESION OR MALIGNANCY. Descriptive Interpretation: CELLULAR CHANGES CONSISTENT WITH ATROPHY. HIGH RISK HPV TEST RESULT: HPV GENOTYPE 16 NEGATIVE HPV GENOTYPE 18 NEGATIVE HPV GENOTYPE OTHER NEGATIVE Reference Range: Negative QC review performed at [facility], [address] [place] [address] Testing for high-risk (HR) type of human papilloma virus (HPV) is performed by the Dante valeriano HPV Test. The valeriano HPV Test is a qualitative polymerase chain reaction that amplifies DNA of HPV16, HPV18 and 12 other high-risk HPV types (31, 33, 35, 39, 45, 51, 52, 56, 58, 59, 66, and 68) associated with cervical cancer and its precursor lesions. A positive result indicates the presence of HPV DNA due to one or more of the 14 genotypes: 16, 18, 31, 33, 35, 39, 45, 51, 52, 56, 58, 59, 66, and 68. Negative results indicate HPV DNA concentrations are undetectable or below the pre-set threshold for detection. False negative results may be associated with unoptimized sampling. A negative HR HPV result does not exclude the possibility of future cytologic HSIL or underlying CIN2-3 or cancer. This test is approved for cervical specimens by the [place] Food and Drug Administration. Results of this test should be interpreted in conjunction with the patient?s Pap test results. Please refer to ASCCP current guidelines for the use of HPV DNA testing, result interpretation, and patient management. The performance of this test was verified by the [facility] at [facility]. The lab is certified under the Clinical Laboratory Amendments of 1988 (CLIA 88) as qualified to perform high complexity clinical laboratory testing. This specimen has been analyzed by the [employer] Imaging System ([employer] an automated imaging and review system, which assists the laboratory in evaluating cells on ThinPrep Pap tests. Following automated imaging, selected aragon from every slide were reviewed by a supervisor insulation and/or pathologist. Electronically Signed Out By [facility], Cytology//CRR/JMD By the signature on this report, the individual or group listed as making the Final Interpretation/Diagnosis certifies that they have reviewed this case. Diagnostic interpretation performed at [facility] [address] [place] [address] Educational Note: Cervical cytology is a screening procedure primarily for squamous cancers and precursors and has associated false-negative and false-positive results as evidenced by published data. Your patient?s test should be interpreted in this context, together with patient?s history and clinical findings. Regular sampling and follow-up of unexplained clinical signs and symptoms are recommended to minimize false negative results. Clinical History Date of Last Menstrual Period: HYSTER Other Clinical Conditions: COTEST HPV(Genotype) except for ASC-H, HSIL, Carcinoma - Include HPV Genotype testing Annual Clinical Diagnosis History: Vaginal Papanicolaou smear - (Z12.72); Women's annual routine gynecological examination - (Z01.419) Source of Specimen A: THINPREP PAP VAGINAL [facility] Department of Pathology [id number] [place], [place] [address]Comment on above:Performed By: #### C #### [facility] Cytology [id number] [place], [place] [address]Evaluation note* Diagnosis Onset Date Resolution Status Acute cough acute Common cold acute Encounter for screening for COVID-19 [facility] Work Phone: Evaluation note* Diagnosis Onset Date Resolution Status URI (upper respiratory infection) [facility] Work Phone: Evaluation note* Diagnosis Onset Date Resolution Status URI (upper respiratory infection) acute Cystitis [facility] Work Phone: Evaluation note* Diagnosis Encounter for screening mammogram for breast cancer documented in this encounter [facility] Work Phone: Evaluation note* Diagnosis Encounter for annual routine gynecological examination Encounter for screening mammogram for malignant neoplasm of breast Vaginal Pap smear Special screening for malignant neoplasms, vagina documented in this encounter [facility] Work Phone: Evaluation note* Diagnosis Encounter for screening mammogram for malignant neoplasm of breast documented in this encounter [facility] Work Phone: Evaluation noteNo assessment information available [facility] Work Phone: History of Present illness NarrativePresents for annual exam. She voices no complaints and is doing well. Denies any bowel or bladder problems. Denies any breast problems. She had a previous hysterectomy. [facility] Work Phone: History of Present illness NarrativePresents for annual exam. She voices no complaints and is doing well. Denies any bowel or bladder problems. Denies any breast problems. She had previous hysterectomy. [facility] Work Phone: Reason for referral (narrative)No reason for referral information [facility] Work [facility]: Reason for visit Narrative* Imaging (Routine) - Authorized Specialty Diagnoses / Procedures Referred By Florentino abdi Referred To Contact Radiology Diagnoses Encounter for screening mammogram for malignant neoplasm of breast Procedures BI mammo bilateral screening tomosynthesis Tonya Slater MD [address] [place] [address] Dr [facility] [place] [address] Phone: tel: fax: Referral ID Status Reason Start Date Expiration Date Visits Requested Visits Authorized [id number] Authorized Perform Procedure 10/27/2024 10/27/2025 1 1 [facility] Work Phone: Summary Purpose Family History No Family History Records Found Mother Name Dates Details Family history of thyroid di sease(V18.19, Z83.49) Status:Active Family history of hypertensi on(V17.49, Z82.49) Status:Active Father Name Dates Details Family history of glioblasto ma(V16.8, Z80.8) Status:Active Unknown Family Member Name Dates Details Family history of thyroid di sease: Mother(V18.19, Z83.49) Status:Active Family history of glioblasto ma: Father(V16.8, Z80.8) Status:Active Family history of hypertensi on: Mother(V17.49, Z82.49) Status:Active Unknown Family Member Name Dates Details Family history of thyroid di sease: Mother(V18.19, Z83.49) Status:Active Family history of glioblasto ma: Father(V16.8, Z80.8) Status:Active Family history of hypertensi on: Mother(V17.49, Z82.49) Status:Active Unknown Family Member Name Dates Details Family history of thyroid di sease: Mother(V18.19, Z83.49) Status:Active Family history of glioblasto ma: Father(V16.8, Z80.8) Status:Active Family history of hypertensi on: Mother(V17.49, Z82.49) Status:Active Unknown Family Member Name Dates Details Family history of thyroid di sease: Mother(V18.19, Z83.49) Status:Active Family history of glioblasto ma: Father(V16.8, Z80.8) Status:Active Family history of hypertensi on: Mother(V17.49, Z82.49) Status:Active Unknown Family Member Name Dates Details Family history of thyroid di sease: Mother(V18.19, Z83.49) Status:Active Family history of glioblasto ma: Father(V16.8, Z80.8) Status:Active Family history of hypertensi on: Mother(V17.49, Z82.49) Status:Active Advance Directives No Advanced Directives Records Found Advance Directive Response Recorded Date/ Time Living Will Yes April 26 1 3:38pm Power of Wolf Hunter Yes April 26, 021 3:38pm Advance Directive Response Recorded Date/ Time Living Will Yes April 26 1 4:38pm Power of Wolf Hunter Yes April 26, 2 021 4:38pm Chief Complaint Patient is here for her yearly exam and pap test. LMP: Hysterectomy. Patient does not do self breast exams and has no concerns at this time.* Patient is here for yearly exam. Patient does NOT DO self breast exams regularly. LMP HYSTER * PT HAS NO CONCERNS. Chief Complaint and Reason for Visit Chief Complaint SORE THROAT, CONGEST ED, COUGHING SYNOVIAL CYST OF POLITEAL APCE RIGHT KNEE Reason for Visit Acute cough Common cold Encounter for screening for COVID-19 Chief Complaint SYNOVIAL CYST OF MARCELINA ITEAL APCE RIGHT KNEE RIGHT KNEE PAIN / RX HERE POSITIVE HOME COVID TEST/NEEDS TEST FOR WORK Reason for Visit URI (upper respirato ry infection) Chief Complaint SYNOVIAL CYST OF MARCELINA ITEAL APCE RIGHT KNEE RIGHT KNEE PAIN / RX HERE POSITIVE HOME COVID TEST/NEEDS TEST FOR WORK Urinary tract infection UTI, URINE CULTURE & UA Reason for Visit URI (upper respirato ry infection) Cystitis Reason for Referral Specialty Diagnoses / Procedures Referred By Florentino abdi Referred To Contact Radiology Diagnoses Encounter for screening mammogram for breast cancer Procedures BI mammo bilateral screening tomosynthesis Tonya Slater MD [address] [place] [address] Medical Office, [place] [address] [place] [address] Referral ID Status Reason Start Date Expiration Date Visits Requested Visits Authorized [id number] Authorized Perform Procedure 3 08/28/2024 1 1 Additional Source Comments INFORMATION SOURCE (unrecogn ized section and content) DATE CREATED AUTHOR 04/02/2018 [facility] DATE CREATED AUTHOR AUTHOR'S ORGANIZ ATION 08/24/2022 [employer] DATE CREATED AUTHOR AUTHOR'S ORGANIZ ATION 09/06/2022 [facility] DATE CREATED AUTHOR AUTHOR'S ORGANIZ ATION 11/06/2022 [facility] DATE CREATED AUTHOR AUTHOR'S ORGANIZ ATION 11/11/2024 [facility] DATE CREATED AUTHOR AUTHOR'S ORGANIZ ATION 11/14/2024 [facility] DATE CREATED AUTHOR AUTHOR'S ORGANIZ ATION 07/06/2025 [facility] Care Teams (unrecognized sec tion and content) Team Status: Active Member Role Status Dates Dr. Kandy Pool MD Primary Care Provider Active Team Status: Inactive Member Role Status Dates Dr. Kandy Pool MD Primary Care Provider, Referr ing Provider Active MIGUEL Vick Attending Provider Active Team Status: Inactive Member Role Status Dates Dr. Kandy Pool MD Primary Care Provider Active Dr. Oumar Hook MD Attending Provider, Referring Prov ider Active Team Status: Inactive Member Role Status Dates Dr. Kandy Pool MD Primary Care Provider, Referr ing Provider Active Kandy Arnold NP, MEGHAN-C Attending Provider Active Team Status: Inactive Member Role Status Dates Dr. Kandy Pool MD Primary Care Provider, Referr ing Provider Active BOOKER Fletcher Attending Provider Active Team Status: Inactive Member Role Status Dates Dr. Kandy Pool MD Primary Care Provider Active BOOKER Fletcher Attending Provider, Referring Provi lakeisha Active [employer]stile [employer]or Relationship Specialty Start Date End Date Kandy Pool MD [address] [facility] [address] PCP - General 11/02/22 [employer] Relationship Specialty Start Date End Date Kandy Pool MD [address] [facility] [address] PCP - General 11/02/22 Team Status: Inactive Member Role Status Dates Dr. Kandy Pool MD Primary Care Provider Active Start: February 14, 2025 End: February 14, 2025 Dr. Krishan Jay DPM Attending Provider Active Start: February 14, 2025 End: February 14, 2025 Dr. Krishan Jay DPM Referring Provider Active Start: February 14, 2025 End: February 14, 2025 Team Status: Active Member Role/Relationship Status Dates Dr. Kandy Pool MD Primary Care Provider Active Team Status: Inactive Member Role/Relationship Status Dates Dr. Kandy Pool MD Primary Care Provider Active Start: February 14, 2025 End: February 14, 2025 Dr. Krishan Jay DPM Attending Provider Active Start: February 14, 2025 End: February 14, 2025 Dr. Krishan Jay DPM Referring Provider Active Start: February 14, 2025 End: February 14, 2025 Team Status: Inactive Member Role/Relationship Status Dates Dr. Kandy Pool MD Primary Care Provider Active Start: March 23, 2025 End: March 23, 2025 Dr. Krishan Jay DPM Attending Provider Active Start: March 23, 2025 End: March 23, 2025 Dr. Krishan Jay DPM Referring Provider Active Start: March 23, 2025 End: March 23, 2025 Goals (unrecognized section and content) Goals may be documented in a n alternate sectionGoals may be documented in an alternate sectionGoals may be documented in an alternate sectionGoals may be documented in an alternate sectionGoals may be documented in an alternate section Reason for Visit (unrecogniz ed section and content) Specialty Diagnoses / Procedures Referred By Contingrid t Referred To Contact Radiology Diagnoses Encounter for screening mammogram for breast cancer Procedures BI mammo bilateral screening tomosynthesis Tonya Slater MD [address] [place] [address] [facility] Medical Office, [place] [phone] Referral ID Status Reason Start Date Expiration Date Visits Requested Visits Authorized [id number] Authorized Perform Procedure 3 08/28/2024 1 1 Reason Comments Gynecologic Exam Patient is here for yearly exam and pap test. Patient does not do regular self breast exams and has no concerns at this time. LMP: Hysterectomy FOR RECORDS PERTAINING TO PATIENTS WHO ARE OR HAVE BEEN ENROLLED IN A CHEMICAL DEPENDENCY/SUBSTANCEABUSE PROGRAM, SOME INFORMATION MAY BE OMITTED. This clinical summary was aggregated from multiple sources. Caution should be exercised in using it in the provision of clinical care. This summary normalizes information from multiple sources, and as a consequence, information in this document may materially change the coding, format and clinical context of patient data. In addition, data may be omitted in some cases. CLINICAL DECISIONS SHOULD BE BASED ON THE PRIMARY CLINICAL RECORDS. [employer] provides no warranty or guarantee of the accuracy or completeness of information in this document.
== END | disposition home or self-care (01) ==
LOC: OPBD 16:18
PROVIDERS: PCP Family Medicine
DX: Z78.0 Asymptomatic menopausal state (principal)
CPT/HCPCS: 77080